=== PATIENT | female | born 1975 | race Hispanic/Latino ===

== ENCOUNTER 2017-04-12 19:15 | Emergency (ER) | payer BC ==
[~2017-04-12] VITALS: Ht 152.4 cm; Wt 68.2 kg
[2017-04-12] MEDS ORDERED: [UNRECOGNIZED DRUG - CODE] PO (19:36)
[2017-04-12] MEDS ORDERED: diazePAM 5 MG TAB PO ONE (21:00)
[2017-04-12] MEDS ORDERED: KETOROLAC 60 MG/2 ML VIAL (J1885) IM ONE (21:00)
[2017-04-12] MEDS ORDERED: PERC5TAB12 PO (22:07)
[2017-04-12 22:14] VITALS: BP 162/92
[2017-04-12] MEDS ORDERED: OXYCODONE/APAP 5MG/325MG(BULK FOR ED) 1 TABLET PO ONE (22:15)
== END 2017-04-12 22:39 | disposition home or self-care (01) ==
LOC: M ED 21:17
DX: M54.5 Low back pain (principal); G89.29 Other chronic pain
CPT/HCPCS: 96372; 99282; J1885